=== PATIENT | female | born 1955 | race Hispanic/Latino ===

== ENCOUNTER 2018-02-23 05:35 | Day surgery (SDC) | payer MEDICAID ==
[~2018-02-23] VITALS: Ht 170.2 cm; Wt 76.1 kg
[~2018-02-23 05:35] MED LIST: CARAL PO; FERR325T22 PO; PANT40TA25 PO
[2018-02-23] MEDS ORDERED: SODIUM CHLORIDE 0.9% 1000ML 1,000 ML IV ONE (05:38)
[2018-02-23 05:52] VITALS: BP 126/84
[2018-02-23] MEDS ORDERED: PROPOFOL 1000 MG/100 ML 100 ML IV ONE (06:27)
[2018-02-23] MEDS ORDERED: LIDOCAINE HCL-MPF 2% 5ML VIAL ONE (06:28)
[2018-02-23] MEDS ORDERED: METO5TAB2 PO (06:35)
[2018-02-23] MEDS ORDERED: LACT10SO8 PO (06:35)
[2018-02-23] MEDS ORDERED: CARAL PO (06:35)
[2018-02-23] MEDS ORDERED: ABAT125S SQ ×2 (06:35)
[2018-02-23] MEDS ORDERED: UMEC62.5 IH (06:35)
[2018-02-23] MEDS ORDERED: CETI10TA57 PO (06:35)
[2018-02-23] MEDS ORDERED: FLUT1BLS IH (06:35)
[2018-02-23] MEDS ORDERED: BUDE10.2 IH (06:35)
[2018-02-23] MEDS ORDERED: ERGO500014 PO (06:35)
[2018-02-23] MEDS ORDERED: INSU100I3 SQ ×2 (06:35)
[2018-02-23] MEDS ORDERED: GABA-529 PO ×2 (06:35)
[2018-02-23] MEDS ORDERED: PILO5TAB PO (06:35)
[2018-02-23 06:47] VITALS: BP 93/56
[2018-02-23 06:49] VITALS: BP 98/63
[2018-02-23 06:55] VITALS: BP 101/62
[2018-02-23 07:09] VITALS: BP 118/70
== END 2018-02-23 07:15 | disposition home or self-care (01) ==
LOC: ENDO 05:35 → DAH 05:38 → ENDO 06:43
PROVIDERS: ATTEND Internal Medicine Gastroenterology
DX: I85.00 Esophageal varices without bleeding (principal); K29.50 Unspecified chronic gastritis without bleeding; B96.81 Helicobacter pylori [H. pylori] as the cause of diseases classified elsewhere; K31.89 Other diseases of stomach and duodenum; K76.6 Portal hypertension; I10 Essential (primary) hypertension; E78.5 Hyperlipidemia, unspecified; M06.9 Rheumatoid arthritis, unspecified; D64.9 Anemia, unspecified; K21.9 Gastro-esophageal reflux disease without esophagitis; Z79.899 Other long term (current) drug therapy; E11.9 Type 2 diabetes mellitus without complications; Z79.4 Long term (current) use of insulin
CPT/HCPCS: 43239; 43244; 82948 ×2; 88305; 88342; A4606 ×2; J2704; J3490; J7030

== ENCOUNTER 2018-05-02 05:30 | Day surgery (SDC) | payer MEDICARE ==
[~2018-05-02] VITALS: Ht 162.6 cm; Wt 74.7 kg
[2018-05-02] VITALS (8 sets, daily range): BP systolic 83–118; BP diastolic 43–74
[~2018-05-02 05:30] MED LIST changes: +ABAT125S SQ; +BUDE10.2 IH; +CETI10TA57 PO; +ERGO500014 PO; +FLUT1BLS IH; +GABA-529 PO; +INSU100I3 SQ; +LACT10SO8 PO; +METO5TAB2 PO; +PILO5TAB PO; +UMEC62.5 IH
[2018-05-02] MEDS ORDERED: SODIUM CHLORIDE 0.9% 1000ML 1,000 ML IV ONE (06:39)
[2018-05-02] MEDS ORDERED: PROPOFOL 10 MG/ML 20ML VIAL IV ONE ×2 (07:02)
[2018-05-02] MEDS ORDERED: SIMETHICONE 40 MG/0.6 ML ML ONE (07:22)
== END 2018-05-02 08:07 | disposition home or self-care (01) ==
LOC: DAH 05:30 → ENDO 05:30
PROVIDERS: ATTEND Internal Medicine
DX: D12.2 Benign neoplasm of ascending colon (principal); K64.0 First degree hemorrhoids; K57.30 Diverticulosis of large intestine without perforation or abscess without bleeding; D62 Acute posthemorrhagic anemia; K21.9 Gastro-esophageal reflux disease without esophagitis; E11.9 Type 2 diabetes mellitus without complications; I85.00 Esophageal varices without bleeding; K76.9 Liver disease, unspecified; B96.81 Helicobacter pylori [H. pylori] as the cause of diseases classified elsewhere; I10 Essential (primary) hypertension; E78.5 Hyperlipidemia, unspecified; M06.9 Rheumatoid arthritis, unspecified; Z90.710 Acquired absence of both cervix and uterus; Z79.899 Other long term (current) drug therapy; Z79.01 Long term (current) use of anticoagulants; Z79.84 Long term (current) use of oral hypoglycemic drugs; Z79.4 Long term (current) use of insulin; Z98.890 Other specified postprocedural states; Z82.49 Family history of ischemic heart disease and other diseases of the circulatory system
CPT/HCPCS: 43235; 45380; 82948 ×2; 88305; A4606; J2704 ×2; J7030

== ENCOUNTER 2018-11-15 05:44 | Day surgery (SDC) | payer MEDICARE ==
[~2018-11-15] VITALS: Ht 167.6 cm; Wt 80.3 kg
[~2018-11-15 05:44] MED LIST changes: +CALC-1062 PO; -CARAL PO; -ERGO500014 PO; -FERR325T22 PO; +INSU100C14 SQ; -INSU100I3 SQ; +iron
[2018-11-15] MEDS ORDERED: SODIUM CHLORIDE 0.9% 1000ML 1,000 ML IV ONE (05:50)
[2018-11-15] MEDS ORDERED: PROPOFOL 10 MG/ML 20ML VIAL IV ONE (06:13)
[2018-11-15] MEDS ORDERED: LIDOCAINE HCL-MPF 2% 5ML VIAL ONE (06:13)
[2018-11-15 06:25] VITALS: BP 111/61
[2018-11-15 07:24] VITALS: BP 87/42
[2018-11-15 07:29] VITALS: BP 90/60
[2018-11-15 07:34] VITALS: BP 98/59
[2018-11-15 07:39] VITALS: BP 99/59
[2018-11-15 07:44] VITALS: BP 114/69
== END 2018-11-15 07:52 | disposition home or self-care (01) ==
LOC: ENDO 05:44 → DAH 05:44 → ENDO 07:52
PROVIDERS: ATTEND Internal Medicine
DX: K29.50 Unspecified chronic gastritis without bleeding (principal); K31.89 Other diseases of stomach and duodenum; K74.60 Unspecified cirrhosis of liver; I85.10 Secondary esophageal varices without bleeding; R12 Heartburn; J44.9 Chronic obstructive pulmonary disease, unspecified; K21.9 Gastro-esophageal reflux disease without esophagitis; E11.9 Type 2 diabetes mellitus without complications; M06.9 Rheumatoid arthritis, unspecified; Z90.710 Acquired absence of both cervix and uterus; E78.5 Hyperlipidemia, unspecified; Z82.49 Family history of ischemic heart disease and other diseases of the circulatory system; I85.00 Esophageal varices without bleeding; K76.0 Fatty (change of) liver, not elsewhere classified; K57.30 Diverticulosis of large intestine without perforation or abscess without bleeding
CPT/HCPCS: 43239; 82948 ×2; 88305; A4606; J2704; J3490; J7030